=== PATIENT | female | born 1930 | race Caucasian/White ===

== ENCOUNTER 2018-04-10 01:01 | Observation (INO) | payer MEDICARE ==
[2018-04-10] MEDS ORDERED: Nitroglycerin 2% Ointment 1 INCH/1 GM Packet ONE (01:31)
[2018-04-10 01:51] LABS: Bilirubin Negative (Negative); Blood, Urine Negative (Negative); Clarity CLEAR (Clear); Glucose, Urine (Dipstick) Negative (Negative); Leukocyte Negative (Negative); Nitrite Negative (Negative); Protein, Urine (Dipstick) Negative (Neg-Trace); Urobilinogen 0.2 mg/dL (0.2-1.0); pH, Urine 7.5 (5.0-9.0)
[2018-04-10 01:52] LABS: Specific Gravity, Urine 1.004 (1.002-1.036)
[2018-04-10 01:52] LABS: #Eosinphils 0.2 thou/uL (0.0-0.7); #Lymphocytes 1.2 thou/uL (1.20-3.40); #Monocytes 0.4 thou/uL (0.11-0.59); #Neutrophils 1.7 thou/uL (1.40-6.50); %Basophils 0.6 % (0.0-1.0); %Eosinophils 6.6 % (0.0-10.0); %Lymphocytes 34.3 % (21.0-51.0); %Monocytes 10.1 % (0.0-10.0); %Neutrophils 48.5 % (42.0-75.0); Hemoglobin 11.4 g/dL (12.0-16.0); Mean Corpuscular Hemoglobin 34.5 pg (27.0-31.0); Mean Corpuscular Volume 98.4 fL (78.0-98.0); Platelet Count 160 thou/uL (130-400); RBC Distribution Width 11.9 % (11.5-14.5); Red Blood Cell (RBC) Count 3.32 mill/uL (4.20-5.40); White Blood Cell (WBC) Count 3.5 thou/uL (4.8-10.8)
[2018-04-10 02:15] LABS: ALT (SGPT) 9 U/L (8-55); AST (SGOT) 17 U/L (5-34); Albumin 3.8 g/dL (3.4-4.8); Alkaline Phosphatase 40 U/L (40-150); Anion Gap 9 mmol/L (10-20); BUN (Urea Nitrogen) 8 mg/dL (9.8-20.1); Bilirubin, Total 1.3 mg/dL (0.2-1.2); CK (CPK) 57 U/L (29-168); Calc. Creatinine Clearance 0 mL/min (70-130); Calcium 9.3 mg/dL (7.8-10.44); Carbon Dioxide 30 mmol/L (23-31); Chloride 93 mmol/L (98-107); Estimated GFR-MDRD 80; Globulin 2.9 g/dL (2.4-3.5); Glucose 107 mg/dL (83-110); Lipase 35 U/L (8-78); Potassium 3.9 mmol/L (3.5-5.1); Protein, Total 6.7 g/dL (6.0-8.3); Sodium 128 mmol/L (136-145)
[2018-04-10 02:17] LABS: CKMB 1.7 ng/mL (0-6.6); Troponin I Less than 0.010 ng/mL (< 0.028)
[2018-04-10] MEDS ORDERED: Ondansetron HCl/PF 4 MG/2 ML Vial IVP PRN (03:27)
[2018-04-10] MEDS ORDERED: Ondansetron ODT 4 MG TAB SL PRN (03:27)
[2018-04-10] MEDS ORDERED: hydrALAZINE 20 MG/ML VIAL SLOW IVP PRN ×2 (03:28→03:55)
[2018-04-10 05:30] VITALS: BMI 20.8
[2018-04-10] MEDS ORDERED: Milk Of Magnesia 30 ML UDCUP PO PRN (07:49)
[2018-04-10] MEDS ORDERED: Nitroglycerin 0.4 MG TAB (25 Tab Bottle) PO PRN (07:49)
[2018-04-10] MEDS ORDERED: Mag-Al 1200 mg/1200 mg/30 ML UDCUP PO PRN (07:49)
[2018-04-10] MEDS ORDERED: Senokot 8.6 MG TAB PO PRN (07:49)
[2018-04-10] MEDS ORDERED: Calcium Carbonate 500 MG ChewTAB PO PRN (07:49)
[2018-04-10] MEDS ORDERED: Acetaminophen 325 MG TAB PO PRN (07:49)
[2018-04-10] MEDS ORDERED: Ondansetron ODT 4 MG TAB PO PRN (07:49)
[2018-04-10 07:53] LABS: Magnesium 1.8 mg/dL (1.6-2.6); Phosphorus 3.3 mg/dL (2.3-4.7)
[2018-04-10] MEDS ORDERED: Carvedilol 3.125 MG TAB PO SCH (08:00)
[2018-04-10] MEDS ORDERED: Aspirin 325 MG TAB PO SCH (08:00)
--- NOTE | 2018-04-10 08:15 | HP ---
CHIEF COMPLAINT: Dizziness with elevated blood pressure. PRIMARY CARE PHYSICIAN: Dr. Rodriguez. HISTORY OF PRESENT ILLNESS: Patient is an 87-year-old female with hypertension who presented to the emergency room with above complaints. The patient currently lives in a mobile home with her friend. She is independent of activities of da [facility] living. She uses a cane sometimes. She is currently on lisinopril/HCTZ for blood pressure and i s compliant with it. The last dose was yesterday. Since yesterday morning, the patient has episode of dizziness which are brief, lasting less than 2-3 minutes. She states that this usually happens when her blood pressures are running high. She took a blood pressure medicine yesterday morning. Due to several episodes of dizziness, she presented to [facility] emergency room. She also checked her blood pressure at home which was elevated in 180s to 190s. She denies any chest pain, shortness of breath, palpitations, syncope or loss of vision. No double v ision, weakness, numbness of any of her extremities reported. She does not report any fall. In the emergency room, her initial vital signs showed blood pressure of 180/89 with pulse rate 61, re spiration of 18, temperature of 98.1 with O2 saturation of 97% on room air. Her EKG showed sinus bra dycardia with first-degree AV block with heart rate of [address]-T wave changes. CT sca n of the brain was negative. Chest x-ray was negative for infiltrate. A nitropatch was placed in [facility] emergency room. She also received 500 mL of IV normal saline. PAST MEDICAL HISTORY: 1. Hypertension. 2. Chronic diastolic heart failure. 3. Hypertensive heart disease. 4. History of uterine carcinoma, status post cystectomy. 5. History of visual hallucinations in the past. PAST SURGICAL HISTORY: Hysterectomy. ALLERGIES: The patient is allergic to CODEINE. CURRENT HOME MEDICATIONS: Lisinopril/HCTZ 20/25 daily. FAMILY HISTORY: Negative for heart disease in her family. SOCIAL HISTORY: As discussed above. She is FULL CODE. Her elder son makes a decision. She has goo d family support. REVIEW OF SYSTEMS: The following complete review of systems was negative, unless otherwise mentioned in the HPI or below: Constitutional: Weight loss or gain, ability to conduct usual activities. Skin: Rash, itching. Eyes: Double vision, pain. ENT/Mouth: Nose bleeding, neck stiffness, pain, tenderness. Cardiovascular: Palpitations, dyspnea on exertion, orthopnea. Respiratory: Shortness of breath, wheezing, cough, hemoptysis, fever or night sweats. Gastrointestinal: Poor appetite, abdominal pain, heartburn, nausea, vomiting, constipation, or diarr hea. Genitourinary: Urgency, frequency, dysuria, nocturia. Musculoskeletal: Pain, swelling. Neurologic/Psychiatric: Anxiety, depression. Allergy/Immunologic: Skin rash, bleeding tendency. PHYSICAL EXAMINATION: VITAL SIGNS: As discussed above, last blood pressure was 167/75. Initial blood pressure was 185/82 on arrival to the floor. GENERAL: An 87-year-old female in no apparent distress. HEENT: Head is atraumatic, normocephalic. Sclerae are anicteric. Moist mucous membrane, no oral le she. NECK: Supple, no JVD appreciated. No carotid bruit. LUNGS: Clear to auscultation bilaterally, no wheezing, rales or rhonchi. Lungs were symmetrical. N o accessory muscle use. HEART: S1, S2 present. Regular rate and rhythm. No significant murmur, rubs, or gallops appreciate d. ABDOMEN: Soft, nontender, bowel sounds present, no rebound or guarding. EXTREMITIES: No edema or calf tenderness. NEUROLOGIC: Cranial nerves II through XII were normal on examination. Power was 5/5 in all extremit ies. Sensation to touch was normal bilaterally. SKIN: Warm and dry. LYMPH NODES: No palpable lymph nodes in the neck. PERIPHERAL VASCULAR: Radial pulses palpable bilaterally. MUSCULOSKELETAL: No joint swelling or tenderness. LABORATORY FINDINGS AND IMAGING: Troponin was negative. BNP was 311. Sodium 128. Sodium last year was 129 and in 2016, it was 131. BUN 8, creatinine 0.69. Urinalysis was negative. Chest x-ray and EKG by my review as discussed above. CT scan of the brain was negative. IMPRESSION AND PLAN: 1. Dizziness, probably secondary to hypertensive urgency. CT scan of the brain is negative. Caroti d Doppler and echocardiogram were done on last admission, which were essentially negative except for mild valvular regurgitation on echo. 2. Hypertensive urgency. We will continue lisinopril/hydrochlorothiazide. The patient states that she is compliant with lisinopril. We will add low dose amlodipine. The patient had bradycardia with first-degree AV block on the EKG. We will avoid beta blockers. We will also check orthostatic ana ls. Physical therapy will be consulted as well for safe discharge planning. 3. Chronic hyponatremia. We will monitor. 4. Chronic kidney disease stage 2. 5. History of uterine cancer. Plan of care was discussed with the patient in detail. She stated understanding. We will also check vitamin B12, folic acid. Her TSH was normal in this admission. Discharge disposition probably home. We will try to arrange for home health care. Repeat troponin w ill be ordered. A stress test was negative on last admission. We will continue telemetry monitoring overnight.
[2018-04-10] MEDS ORDERED: Amlodipine 5 MG TAB PO SCH ×2 (09:00→21:00)
[2018-04-10 09:07] LABS: Troponin I Less than 0.010 ng/mL (< 0.028)
[2018-04-10 09:34] LABS: Folate (Folic Acid) 8.2 ng/mL (7.0-31.4)
[2018-04-10] MEDS: Aspirin 81 mg Enteric Coated Tablet PO SCH (09:39)
[2018-04-10] MEDS: Lisinopril/Hydrochlorothiazide 20/25 mg Tablet PO SCH (09:39)
[2018-04-10] MEDS: Docusate 100 MG CAP PO SCH ×2 (09:39→20:40)
--- NOTE | 2018-04-10 09:54 | RAD ---
CHEST 1 VIEW: COMPARISON: 10/01/16. HISTORY: Altered mental status. FINDINGS: Atherosclerosis of the aorta. Calcification of the mitral [id number] is suspected. Chronic change of the lung parenchyma. No consolidation or mass. No pneumothorax or osseous abnormalities. Persisten t elevation of the right hemidiaphragm. IMPRESSION: Atherosclerosis. No acute cardiopulmonary process. POS: [facility]
[2018-04-10] MEDS ORDERED: Cyanocobalamin (Vitamin B-12) 1,000 MCG TAB PO SCH (11:15)
[2018-04-10] MEDS ORDERED: Cyanocobalamin 1000 MCG/ML VIAL IM SCH (11:15)
--- NOTE | 2018-04-10 14:41 | CT ---
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 Pt reports high BP. Ems reports BP of 190s systolic. Ems gave pt 2 sprays of nitro en route. Ems denies CVA SX. Pt denies cp. [place] ; Additional info: AMS TECHNIQUE: Axial computed tomography images of the head/brain without intravenous contrast. COMPARISON: No relevant prior studies available. FINDINGS: Brain: There are scattered foci of hypoattenuation within the periventricular and subcortical white m atter compatible with mild chronic microvascular ischemic change. There are multiple small hypodensit ies in the basal ganglia, consistent with remote lacunar infarctions. No hemorrhage. Ventricles: Normal. No ventriculomegaly. Bones/joints: Normal. No acute fracture. Soft tissues: Normal. Sinuses: Unremarkable as visualized. No acute sinusitis. Mastoid air cells: Unremarkable as visualized. No mastoid effusion. IMPRESSION: No acute intracranial hemorrhage. Thank you for allowing us to participate in the care of your patient. Dictated and Authenticated by: Alex Kelly MD 04/10/2018 2:47 AM Central Time ([place] & [place]) FINAL REPORT CT HEAD NONCONTRAST: COMPARISON: 07/30/13. FINDINGS/IMPRESSION: Agree with the preliminary interpretation provided above. No acute intracranial hemorrhage or mass effect. Parenchymal atrophy. Mild chronic microvascular ischemic disease.
[2018-04-11 05:04] LABS: #Eosinphils 0.3 thou/uL (0.0-0.7); #Lymphocytes 1.4 thou/uL (1.20-3.40); #Monocytes 0.4 thou/uL (0.11-0.59); #Neutrophils 1.6 thou/uL (1.40-6.50); %Basophils 0.8 % (0.0-1.0); %Eosinophils 9.1 % (0.0-10.0); %Lymphocytes 37.9 % (21.0-51.0); %Monocytes 9.5 % (0.0-10.0); %Neutrophils 42.7 % (42.0-75.0); Hemoglobin 11.5 g/dL (12.0-16.0); Mean Corpuscular HGB CONC 34.7 g/dL (32.0-36.0); Mean Corpuscular Hemoglobin 34.1 pg (27.0-31.0); Mean Corpuscular Volume 98.2 fL (78.0-98.0); Mean Platelet Volume 6.1 fL (7.4-10.4); Platelet Count 165 thou/uL (130-400); RBC Distribution Width 12.1 % (11.5-14.5); Red Blood Cell (RBC) Count 3.38 mill/uL (4.20-5.40); White Blood Cell (WBC) Count 3.7 thou/uL (4.8-10.8)
[2018-04-11 05:33] LABS: Anion Gap 12 mmol/L (10-20); BUN (Urea Nitrogen) 9 mg/dL (9.8-20.1); Calc. Creatinine Clearance 49 mL/min (70-130); Calcium 9.1 mg/dL (7.8-10.44); Carbon Dioxide 26 mmol/L (23-31); Chloride 98 mmol/L (98-107); Estimated GFR-MDRD 80; Glucose 87 mg/dL (83-110); Potassium 3.3 mmol/L (3.5-5.1); Sodium 133 mmol/L (136-145)
[2018-04-11] MEDS ORDERED: Potassium Chloride 20 MEQ TAB PO SCH (08:00)
[2018-04-11] MEDS: Lisinopril/Hydrochlorothiazide 20/25 mg Tablet PO SCH (08:10)
[2018-04-11] MEDS: Docusate 100 MG CAP PO SCH (08:10)
[2018-04-11] MEDS: Aspirin 81 mg Enteric Coated Tablet PO SCH (08:10)
[2018-04-11] MEDS ORDERED: Amlodipine 5 MG TAB PO SCH (09:00)
[2018-04-11] MEDS ORDERED: Cyanocobalamin (Vitamin B-12) 1,000 MCG TAB PO SCH (09:00)
[2018-04-11 11:25] VITALS: BP 156/72; TEMP 97.4
--- NOTE | 2018-04-12 09:29 | DIS ---
DISCHARGE DISPOSITION: Home. FOLLOWUP: 1. Follow up with [facility] in 1 week. 2. A 24-hour supervision was recommended. DISCHARGE MEDICATIONS: 1. Amlodipine 2.5 mg daily (new medication). Patient was advised to take an extra dose 8 hours late r if her blood pressure stays elevated. 2. Potassium chloride 10 mEq daily for next 10 days. 3. Aspirin 81 mg daily. 4. Lisinopril/HCTZ 20/25 daily. Base met after one week is recommended. Primary care physician is advised to follow. BRIEF HOSPITAL COURSE: Patient is an 87-year-old female with hypertension who presented to the [facility] with dizziness as well as elevated blood pressure. She was found to have hypertensive urgency in the emergency room. Her symptoms resolved after controlling her blood pressure. She has been start ed on amlodipine. Her potassium on the day of discharge was 3.3. She has been started on potassium supplementation. She was also found to have vitamin B12 deficiency with vitamin B12 level of 213. S he received one intramuscular vitamin B12 injection and has been started on oral vitamin B12. She ma y benefit from monthly vitamin B12 injection. She was advised to monitor blood pressure on the daily basis. She ambulated well with physical therapy. She also declined home healthcare. FINAL DIAGNOSES: 1. Dizziness, probably secondary to hypertensive urgency, resolved. 2. Chronic hyponatremia. Sodium on the day of discharge was 133, on admission was 128. 3. Chronic kidney disease stage 2. 4. History of uterine cancer. 5. Vitamin B12 deficiency with vitamin B12 of 213. Plan of care was discussed with the patient in detail. She stated understanding.
== END 2018-04-11 14:53 | disposition home or self-care (01) ==
LOC: ERS 01:01 → 2SW 02:24
PROVIDERS: ADMIT Hospitalist; ATTEND Hospitalist
DX: I16.0 Hypertensive urgency (principal); R42 Dizziness and giddiness; I13.0 Hypertensive heart and chronic kidney disease with heart failure and stage 1 through stage 4 chronic kidney disease, or unspecified chronic kidney disease; N18.2 Chronic kidney disease, stage 2 (mild); I50.32 Chronic diastolic (congestive) heart failure; E53.8 Deficiency of other specified B group vitamins; E87.1 Hypo-osmolality and hyponatremia; Z85.50 Personal history of malignant neoplasm of unspecified urinary tract organ; Z79.82 Long term (current) use of aspirin; Z79.899 Other long term (current) drug therapy; Z88.5 Allergy status to narcotic agent
CPT/HCPCS: 70450; 71045; 80048; 81003; 82550; 82553; 82607; 82746; 83690; 83735; 83880; 84100; 84484 ×2; 85025; 93005; 94760; 96372; 97116; 97139 ×3; 99285; G0378; G8978; G8979; G8980; 36415; 80053; 84443; 96360; J3420